=== PATIENT | male | born 1975 | race Caucasian/White ===

== ENCOUNTER 2019-03-19 11:10 | Emergency (ER) | payer MEDICARE, MEDICAID ==
[~2019-03-19] VITALS: Ht 170.2 cm; Wt 70.0 kg
[2019-03-19 11:24] VITALS: Ht 170.2 cm; Wt 70.0 kg
[2019-03-19] MEDS ORDERED: ALBUTEROL 0.083% (NEB) 2.5 MG/3 ML AMP NEB STA (11:37)
--- NOTE | 2019-03-19 11:45 | ERD ---
ER Documentation Chief Complaint Chief Complaint BIB RA FOR EVAL OF PSYCH "I HAVE DIABETIC PROBLEMS" C/O SOB, NO SI/HI HPI This is a 44-year-old male who said he smoked meth last night that made him short of breath. He said he has some history of asthma and he was having some bit difficulty breathing after he smoked the meth but were resolved.. Says he feels better now but wants some labs because he says he is a newly diagnosed diabetic and is not taking meds and only trying to control it with diet once his blood work checked for sugar elevation in kidney function. He is not suicidal or homicidal. Denies any abdominal pain or chest pain. ROS All systems reviewed and are negative except as per history of present illness. Medications Home Meds No Active Prescriptions or Reported Meds Allergies Allergies: Coded Allergies: No Known Allergy (Unverified , 03/19/19) FmHx Family History: No coronary disease Physical Exam Vitals Vital Signs Date Temp Pulse Resp B/P (MAP) Pulse Ox O2 O2 Flow FiO2 Time Delivery Rate 03/19/19 98.0 95 18 168/99 99 Room Air 12:12 (122) 03/19/19 97.9 98 18 178/118 99 11:24 (138) Physical Exam Const: Well-developed, well-nourished Head: Atraumatic, normocephalic Eyes: Normal Conjunctiva, PERRLA, EOMI, normal sclera, no nystagmus ENT: Normal External Ears, Nose and Mouth, moist mucus membranes. Neck: Full range of motion. No meningismus, no lymphadenopathy. Resp: Clear to auscultation bilaterally, no wheezing, rhonchi, rales Cardio: Regular rate and rhythm, no murmurs, S1 S2 present Abd: Soft, non tender x 4, non distended. Normal bowel sounds, no guarding or rebound, no pulsitile abdominal masses or bruits Skin: No petechiae or rashes, no ecchymosis , no maculopapular rash Back: No midline or flank tenderness Ext: No cyanosis, or edema, FROM x 4, normal inspection, neurovascularly intact x 4 Neur: Awake and alert, STR 5/5 x 4, sensation intact x 4, no focal findings, cerebellum intact Psych: Normal Mood and Affect Result Diagram: 03/19/19 1323 Results 24 hrs Laboratory Tests Test 03/19/19 11:38 03/19/19 13:23 Bedside Glucose 97 mg/dL White Blood Count 11.5 10^3/ul Red Blood Count 5.00 10^6/ul Hemoglobin 13.7 g/dl Hematocrit 42.3 % Mean Corpuscular Volume 84.6 fl Mean Corpuscular Hemoglobin 27.4 pg Mean Corpuscular Hemoglobin Concent 32.4 g/dl Red Cell Distribution Width 13.3 % Platelet Count 319 10^3/UL Mean Platelet Volume 9.5 fl Immature Granulocytes % 0.400 % Neutrophils % 66.8 % Lymphocytes % 24.8 % Monocytes % 7.6 % Eosinophils % 0.1 % Basophils % 0.3 % Nucleated Red Blood Cells % 0.0 /100WBC Immature Granulocytes # 0.050 10^3/ul Neutrophils # 7.7 10^3/ul Lymphocytes # 2.9 10^3/ul Monocytes # 0.9 10^3/ul Eosinophils # 0.0 10^3/ul Basophils # 0.0 10^3/ul Nucleated Red Blood Cells # 0.0 10^3/ul Current Medications Medications Dose Sig/Lucas Start Time Status Last (Trade) Ordered Route PRN Stop Time Admin Dose Reason Admin Albuterol 7.5 mg ONCE STAT 03/19/19 DC (Proventil NEB 11:37 0.083% (Neb)) 03/19/19 11:39 Procedures/[place] [address] Radiology Main Line: [phone] DIAGNOSTIC IMAGING REPORT Patient: BRANDEE GREEN : 1975 Age: 44 Sex: M MR #: [id number] DOS: 03/19/19 1137 Ordering MD: LEFTY REED DO Location: E/R Room/Bed: PROCEDURE: XR chest. CLINICAL INDICATION: Asthma exacerbation TECHNIQUE: A single portable view of the chest was obtained. COMPARISON: None. FINDINGS: The lungs are clear. There is no pleural effusion or pneumothorax. The cardiac and mediastinal contours are within normal limits. IMPRESSION: 1. No acute pulmonary abnormality. RPTAT: AAEE Freddie Miles Physician Date Time Electronically viewed and signed by Freddie Miles Physician on 03/19/2019 12:54 RF/ CC: LEFTY REED DO [id number] Patient has unremarkable labs. He received a breathing treatment and is feeling better. Discussed with him to stop using drugs. We will discharge him home with an inhaler as needed. Him having a history of asthma than smoking meth likely stimulated an asthmatic response causing some shortness of breath and wheezing. It resolved after he smoked it has not happened since last night Departure Diagnosis: Primary Impression: Substance abuse Additional Impression: Reactive airway disease Asthma severity: mild Asthma persistence: intermittent Asthma complication type: uncomplicated Qualified Codes: J45.20 - Mild intermittent asthma, uncomplicated Condition: Stable LEFTY REED DO Mar 19, 2019 11:45
[2019-03-19 14:38] VITALS: BP 162/95; PULSE 89; RESP 18
== END 2019-03-19 14:41 | disposition home or self-care (01) ==
LOC: E/R 11:10
DX: J45.20 Mild intermittent asthma, uncomplicated (principal); F19.10 Other psychoactive substance abuse, uncomplicated; E11.9 Type 2 diabetes mellitus without complications
CPT/HCPCS: 71045; 80048; 82962; 85025; 94664